=== PATIENT | female | born 1995 | race Caucasian/White ===

== ENCOUNTER 2017-07-23 19:08 | Emergency (ER) | payer BC ==
[~2017-07-23] VITALS: Ht 180.3 cm; Wt 81.8 kg
[2017-07-23 19:08] VITALS: BP 141/85
[2017-07-23 20:33] LABS: COLLECTION METHOD CLEAN CATCH
[2017-07-23 20:54] LABS: MUCOUS Present /lpf; PH 6 (5-8); SQUAMOUS EPITHELIAL 0-2 /hpf; URINE APPEARANCE Clear; URINE BACTERIA None Seen /hpf; URINE BILIRUBIN Negative (NEGATIVE); URINE BLOOD Negative (NEGATIVE); URINE COLOR Yellow; URINE GLUCOSE Negative (NEGATIVE); URINE KETONE Negative (NEGATIVE); URINE LEUKOCYTE ESTERASE Negative (NEGATIVE); URINE PROTEIN(semi-quant) Negative (NEGATIVE); URINE RBC 0-2 /hpf; URINE UROBILINOGEN Negative (NEGATIVE); URINE WBC 0-2 /hpf
[2017-07-23 21:18] LABS: BASO % 0.3 % (0.0-2.0); EOS % 0.2 % (0-4.0); GRAN # 9.9 (1.4-6.5); GRAN % 89.7 % (42.2-75.2); HEMATOCRIT 42.7 % (35.0-45.0); HEMOGLOBIN 14.2 g/dl (12.0-15.0); LYMPH # 0.5 (1.2-3.4); LYMPH % 4.3 % (20.0-51.0); MEAN CELL VOLUME 88 fl (80.0-95.0); MEAN CORPUSCULAR HEMOGLOBIN 29 pg (26.0-32.0); MEAN CORPUSCULAR HGB CONC 33 g/dl (33.0-37.0); MEAN PLATELET VOLUME 10.5 fl (7.4-10.4); MONO # 0.6 (0.1-0.6); MONO % 5.3 % (1.7-9.3); PLATELET COUNT 258 K/mm3 (130-400); RED BLOOD COUNT 4.83 M/mm3 (4.10-5.30)
[2017-07-23 21:23] LABS: ADJUSTED CALCIUM 9.1 mg/dL (8.4-10.2); ALBUMIN 4.9 gm/dL (3.5-5.0); BILIRUBIN,TOTAL 1.3 mg/dL (0.0-1.0); CALCIUM 9.8 mg/dL (8.4-10.2); CREATININE, serum 0.73 mg/dL (0.52-1.25); POTASSIUM 3.8 mmol/L (3.4-5.0); TOTAL PROTEIN 8.5 gm/dL (6.4-8.2)
[2017-07-23 22:16] VITALS: TEMP 99.3
[2017-07-23 23:08] VITALS: PULSE 85
== END 2017-07-23 23:11 | disposition home or self-care (01) ==
LOC: COL.ER 19:08
PROVIDERS: Emergency Medicine
DX: S06.0X9A Concussion with loss of consciousness of unspecified duration, initial encounter (principal); Z82.3 Family history of stroke; Z98.890 Other specified postprocedural states; W22.03XA Walked into furniture, initial encounter
CPT/HCPCS: J0780; J1200; J7030

== ENCOUNTER → 2019-08-07 | Outpatient (CLI) | payer BC ==
[~2019-08-07] VITALS: Ht 179.1 cm; Wt 110.7 kg
[~2019-08-07] MED LIST: CELEXA40 MG PO; KYLEENA1 EACH IY
[2019-08-07 08:05] VITALS: BP 106/84; PULSE 77
== END ==
LOC: LIGHT 07:46
DX: F50.81 Binge eating disorder (principal); G43.709 Chronic migraine without aura, not intractable, without status migrainosus; F41.1 Generalized anxiety disorder; E66.9 Obesity, unspecified; Z68.34 Body mass index [BMI] 34.0-34.9, adult; Z71.3 Dietary counseling and surveillance
CPT/HCPCS: G0463

== ENCOUNTER → 2019-08-22 | Outpatient (CLI) | payer BC | LOC: LIGHT 12:58 | DX: F50.81 Binge eating disorder (principal); G43.709 Chronic migraine without aura, not intractable, without status migrainosus; F41.1 Generalized anxiety disorder; E66.9 Obesity, unspecified; Z68.34 Body mass index [BMI] 34.0-34.9, adult; Z71.3 Dietary counseling and surveillance ==

== ENCOUNTER → 2019-08-26 | Outpatient (CLI) | payer BC | LOC: LIGHT 14:53 | DX: F50.81 Binge eating disorder (principal); G43.709 Chronic migraine without aura, not intractable, without status migrainosus; F41.1 Generalized anxiety disorder; E66.9 Obesity, unspecified; Z68.34 Body mass index [BMI] 34.0-34.9, adult; Z71.3 Dietary counseling and surveillance ==

== ENCOUNTER → 2019-12-18 | Outpatient (CLI) | payer BC ==
[~2019-12-18] MED LIST changes: +ANTI-ANXIETY MED PO; +PHENTERMINE15 MG PO
== END ==
LOC: BHSO 10:53
DX: F41.1 Generalized anxiety disorder (principal)

== ENCOUNTER → 2020-01-28 | Outpatient (CLI) | payer BC | LOC: BHSO 10:53 | DX: F41.1 Generalized anxiety disorder (principal) ==

== ENCOUNTER → 2020-02-11 | Outpatient (CLI) | payer BC | LOC: BHSO 12:57 | DX: F41.1 Generalized anxiety disorder (principal) ==

== ENCOUNTER → 2020-02-25 | Outpatient (CLI) | payer BC | LOC: BHSO 09:54 | DX: F41.1 Generalized anxiety disorder (principal) ==

== ENCOUNTER → 2020-03-11 | Outpatient (CLI) | payer BC | LOC: BHSO 11:00 | DX: F41.1 Generalized anxiety disorder (principal) ==